=== PATIENT | female | born 1960 | race Caucasian/White ===

== ENCOUNTER → 2016-08-28 | Outpatient (CLI) | payer OTHER ==
[~2016-08-28] MED LIST: ALDACTONE25 MG PO; AMITRIPTYLINE H25 MG PO; AMLODIPINE BESY10 MG PO; ASCORBIC ACID500 MG PO; BUPROPION HCL150 M1 PO; BUSPIRONE HCL15 MG PO; FERROUS SULFAT325 MG PO; HYDROCHLOROTHIA25 MG PO; HYDROXYZINE HCL25 MG PO; INVEGA9 MG PO; JANUVIA100 MG PO; LEVEMIR100 UNIT/1 SQ; LIPITOR80 MG PO; LISINOPRIL40 MG PO; LOPID TAB 600600 MG PO; LOPRESSOR 50 MG50 MG PO; MELOXICAM15 MG PO; METFORMIN HCL500 MG PO; NEURONTIN 100100 MG PO; NIACIN500 M1 PO; NITROFURANTOIN100 MG PO; NOVOLOG 10100 UNITS1 INJ; PANTOPRAZOLE SO40 MG PO; PROCTOSOL-HC28.35 GM PR; SEA SOFT45 ML; VENLAFAXINE HC225 MG PO; VENTOLIN HFA 66.7 GM INH; VITAMIN B-1000 MCG/M IM
== END ==
LOC: HEART 5 09:50
DX: I71.2 Thoracic aortic aneurysm, without rupture (principal); R06.02 Shortness of breath; I10 Essential (primary) hypertension; R07.9 Chest pain, unspecified; R06.00 Dyspnea, unspecified
CPT/HCPCS: 93306